=== PATIENT | female | born 1945 | race Caucasian/White ===

== ENCOUNTER 2025-05-23 09:15 | Emergency (ER) | payer MEDICARE, MEDICAID ==
[~2025-05-23] VITALS: Ht 162.6 cm; Wt 59.0 kg
[2025-05-23 09:20] VITALS: O2SAT 100
[2025-05-23] MEDS: ACETAMINOPHEN 325MG TABLET PO ONE (10:53)
[2025-05-23 11:58] VITALS: BP 152/51; PULSE 65; RESP 18; TEMP 36.8; O2SAT 97
== END 2025-05-23 12:12 ==
LOC: ER 09:15
DX: S09.90XA Unspecified injury of head, initial encounter (principal); I10 Essential (primary) hypertension; F03.90 Unspecified dementia, unspecified severity, without behavioral disturbance, psychotic disturbance, mood disturbance, and anxiety; W19.XXXA Unspecified fall, initial encounter; Y93.89 Activity, other specified; Y92.89 Other specified places as the place of occurrence of the external cause; Y99.8 Other external cause status
CPT/HCPCS: 99284